=== PATIENT | female | born 1960 | race Two or more races ===

== ENCOUNTER 2017-12-12 14:44 | Emergency (ER) | payer BC, OTHER ==
[2017-12-12 15:08] VITALS: BP 139/87
[2017-12-12] MEDS ORDERED: ACETAMINOPHEN/CODEINE#3 (300/30mg) TAB PO ONE (15:45)
== END 2017-12-12 16:31 | disposition home or self-care (01) ==
LOC: ER 14:44
DX: S52.615A Nondisplaced fracture of left ulna styloid process, initial encounter for closed fracture (principal); S52.502A Unspecified fracture of the lower end of left radius, initial encounter for closed fracture; F17.210 Nicotine dependence, cigarettes, uncomplicated; W01.0XXA Fall on same level from slipping, tripping and stumbling without subsequent striking against object, initial encounter; Y93.89 Activity, other specified; Y92.89 Other specified places as the place of occurrence of the external cause; Y99.8 Other external cause status
CPT/HCPCS: 29125; 73110

== ENCOUNTER 2022-08-18 09:41 | Emergency (ER) | payer BC, OTHER ==
[~2022-08-18] VITALS: Ht 157.5 cm; Wt 58.4 kg
[2022-08-18 11:52] VITALS: BP 147/86
[2022-08-18] MEDS ORDERED: ACET1CAP14 PO (13:57)
== END 2022-08-18 14:05 | disposition home or self-care (01) ==
LOC: ER 09:41
DX: S93.602A Unspecified sprain of left foot, initial encounter (principal); F17.210 Nicotine dependence, cigarettes, uncomplicated; Z88.8 Allergy status to other drugs, medicaments and biological substances; X50.1XXA Overexertion from prolonged static or awkward postures, initial encounter; Y93.89 Activity, other specified; Y92.89 Other specified places as the place of occurrence of the external cause; Y99.8 Other external cause status
CPT/HCPCS: 73630

== ENCOUNTER 2023-01-09 09:18 | Inpatient (IN) | payer OTHER ==
[~2023-01-09] VITALS: Ht 157.5 cm; Wt 72.6 kg
[~2023-01-09 09:18] MED LIST: ACET1CAP14 PO
[2023-01-09 10:29] LABS: Basophils # (auto) 0.1 10 ^3/uL (0-0.2); Basophils % (auto) 0.9 % (0.0-2.0); Eosinophils # (auto) 0.2 10 ^3/uL (0-0.8); Eosinophils % (auto) 1.2 % (0.0-7.0); Hematocrit 46.8 % (36.0-46.0); Hemoglobin 15.9 g/dL (12.2-16.2); Lymphocytes # (auto) 1.6 10 ^3/uL (0.4-5.4); Lymphocytes % (auto) 11.7 % (10.0-50.0); Mean Corpuscular Hemoglobin 31.3 pg (28.0-32.0); Mean Corpuscular Volume 92.1 fL (80.0-100.0); Monocytes # (auto) 0.7 10 ^3/uL (0-1.3); Monocytes % (auto) 5.3 % (0.0-12.0); Neutrophils # (auto) 11.2 10 ^3/uL (1.6-8.6); Neutrophils % (auto) 80.9 % (37.0-80.0); Nucleated Red Blood Cells % 0.1 %; Red Blood Cells 5.08 10^6/uL (4.0-5.20); Red Cell Distribution Width 12.9 % (11.8-14.3); White Blood Cell 13.8 10^3/uL (4.4-10.8)
[2023-01-09 10:48] LABS: Albumin 4.1 g/dL (3.4-5.0); BUN/Creatinine Ratio 12.7 (10.0-20.0); Calcium 9.7 mg/dL (8.5-10.1); Potassium 3.2 mmol/L (3.5-5.1)
[2023-01-09 10:50] LABS: Bilirubin, Total 0.4 mg/dL (0.2-1.0); Total Protein 7.9 g/dL (6.4-8.2)
[2023-01-09] MEDS ORDERED: KETOROLAC TROMETH 30 MG/ML 1ML VIAL IV ONE (12:00)
[2023-01-09] MEDS ORDERED: cefTRIAXone 1GM/50ML D5W 50 ML IV ONE (12:00)
[2023-01-09] MEDS ORDERED: SODIUM CHLORIDE 0.9% 1,000 ML IV ONE (12:00)
[2023-01-09 12:04] LABS: Urine Bacteria NONE SEEN /hpf (None Seen); Urine Blood Negative /uL (Negative); Urine Specific Gravity 1.008 (1.001-1.035); Urine WBC <1 /hpf (0 - 5)
[2023-01-09] MEDS ORDERED: ONDANSETRON HCL 4 MG/2 ML VIAL IV PRN (14:45)
[2023-01-09] MEDS ORDERED: MORPHINE SULFATE INJ 2 MG/ml SYRG IV PRN (14:45)
[2023-01-09] MEDS ORDERED: POTASSIUM EFFERVESENT TAB 25 MEQ PO ONE (14:45)
[2023-01-09] MEDS ORDERED: DOCUSATE SOD 100 MG CAP PO PRN (14:45)
[2023-01-09] MEDS: metroNIDAZOLE 500MG/100ML 100 ML IV SCH ×2 (15:19→22:55)
[2023-01-09] MEDS: SODIUM CHLORIDE 0.9% 1,000 ML IV SCH ×2 (15:20→23:05)
[2023-01-09 18:02] LABS: INR 1.01 (0.9-1.15)
[2023-01-09 23:45] VITALS: BP 134/89
[2023-01-10] MEDS ORDERED: TOPI50TA53 PO (02:01)
[2023-01-10] MEDS ORDERED: HYDR25TA5 PO (02:01)
[2023-01-10] MEDS ORDERED: CHOL20009 PO (02:01)
[2023-01-10] MEDS ORDERED: ATOR40TA52 PO (02:01)
[2023-01-10] MEDS ORDERED: GABA-339 PO (02:01)
[2023-01-10] MEDS ORDERED: ASPI81CH59 PO (02:01)
[2023-01-10 05:00] VITALS: BP_SYST 114; BP_SYST 117; BP_DIAS 60; BP_DIAS 72
[2023-01-10] MEDS: SODIUM CHLORIDE 0.9% 1,000 ML IV SCH ×3 (05:50→18:05)
[2023-01-10] MEDS: metroNIDAZOLE 500MG/100ML 100 ML IV SCH ×3 (05:50→21:12)
[2023-01-10 06:15] LABS: Potassium 3.8 mmol/L (3.5-5.1)
[2023-01-10 06:23] LABS: Albumin 3.1 g/dL (3.4-5.0); BUN/Creatinine Ratio 14.3 (10.0-20.0); Bilirubin, Total 0.4 mg/dL (0.2-1.0); Calcium 8.3 mg/dL (8.5-10.1)
[2023-01-10 06:36] LABS: Basophils # (auto) 0.1 10 ^3/uL (0-0.2); Basophils % (auto) 1.2 % (0.0-2.0); Eosinophils # (auto) 0.3 10 ^3/uL (0-0.8); Eosinophils % (auto) 3.4 % (0.0-7.0); Hematocrit 38.2 % (36.0-46.0); Hemoglobin 13.6 g/dL (12.2-16.2); Lymphocytes # (auto) 2.2 10 ^3/uL (0.4-5.4); Mean Corpuscular Hemoglobin 32.4 pg (28.0-32.0); Mean Corpuscular Hgb Conc. 35.6 g/dL (32.0-36.0); Mean Corpuscular Volume 90.9 fL (80.0-100.0); Monocytes # (auto) 0.5 10 ^3/uL (0-1.3); Neutrophils # (auto) 5.6 10 ^3/uL (1.6-8.6); Neutrophils % (auto) 64.4 % (37.0-80.0); Nucleated Red Blood Cells % 0.1 %; Red Blood Cells 4.21 10^6/uL (4.0-5.20); Red Cell Distribution Width 12.9 % (11.8-14.3); White Blood Cell 8.7 10^3/uL (4.4-10.8)
[2023-01-10 08:20] VITALS: BP 114/77
[2023-01-10 09:00] VITALS: BP 114/77
[2023-01-10] MEDS: cefTRIAXone 1GM/50ML D5W 50 ML IV SCH (09:08)
[2023-01-10] MEDS: PANTOPRAZOLE 40 MG/10 ML VIAL INJ IV SCH (09:54)
[2023-01-10 13:00] VITALS: BP 126/82
[2023-01-10 17:00] VITALS: BP 125/86
[2023-01-10 22:00] VITALS: BP 127/87
[2023-01-11 05:00] VITALS: BP 129/77
[2023-01-11] MEDS: metroNIDAZOLE 500MG/100ML 100 ML IV SCH ×3 (05:49→21:53)
[2023-01-11] MEDS: SODIUM CHLORIDE 0.9% 1,000 ML IV SCH ×2 (05:50→16:45)
[2023-01-11 08:20] VITALS: BP 142/83
[2023-01-11] MEDS: cefTRIAXone 1GM/50ML D5W 50 ML IV SCH (08:31)
[2023-01-11 09:00] VITALS: BP 142/83
[2023-01-11] MEDS: PANTOPRAZOLE 40 MG/10 ML VIAL INJ IV SCH (10:10)
[2023-01-11 13:00] VITALS: BP 153/77
[2023-01-11 16:59] VITALS: BP_SYST 145; BP_SYST 149; BP_DIAS 93; BP_DIAS 94
[2023-01-11 22:00] VITALS: BP 154/88
[2023-01-12] MEDS: SODIUM CHLORIDE 0.9% 1,000 ML IV SCH ×2 (03:16→08:49)
[2023-01-12 05:00] VITALS: BP 147/87
[2023-01-12] MEDS: metroNIDAZOLE 500MG/100ML 100 ML IV SCH ×2 (05:12→13:14)
[2023-01-12 06:43] LABS: Albumin 3.4 g/dL (3.4-5.0); Calcium 8.4 mg/dL (8.5-10.1); Potassium 3.7 mmol/L (3.5-5.1)
[2023-01-12 06:48] LABS: BUN/Creatinine Ratio 7.5 (10.0-20.0); Bilirubin, Total 0.4 mg/dL (0.2-1.0); Total Protein 6.1 g/dL (6.4-8.2)
[2023-01-12] MEDS: cefTRIAXone 1GM/50ML D5W 50 ML IV SCH (08:50)
[2023-01-12] MEDS: PANTOPRAZOLE 40 MG/10 ML VIAL INJ IV SCH (08:50)
[2023-01-12 09:00] VITALS: BP 149/84
[2023-01-12 12:52] VITALS: BP 155/86
[2023-01-12] MEDS ORDERED: METR500T PO (13:54)
== END 2023-01-12 15:54 | disposition home or self-care (01) ==
LOC: ER 09:18 → OVERFLOW 14:52 → EAST 22:05
PROVIDERS: ADMIT Nurse Practitioner Family; ATTEND Internal Medicine
DX: K80.42 Calculus of bile duct with acute cholecystitis without obstruction (principal); E78.5 Hyperlipidemia, unspecified; E87.6 Hypokalemia; K83.8 Other specified diseases of biliary tract; F17.210 Nicotine dependence, cigarettes, uncomplicated; R74.01 Elevation of levels of liver transaminase levels; I10 Essential (primary) hypertension; Z88.8 Allergy status to other drugs, medicaments and biological substances; Z79.899 Other long term (current) drug therapy; K82.8 Other specified diseases of gallbladder
CPT/HCPCS: 36415; 71045; 74181; 76705; 80053; 81001; 83690; 85025; 85610; 86301; 86803; 86850; 86900; 86901; 87340; 96365; 96375; C9113; G0378; J0696; J1885; J3490

== ENCOUNTER 2024-10-23 15:50 | Emergency (ER) | payer OTHER ==
[~2024-10-23] VITALS: Ht 157.5 cm; Wt 53.1 kg
[~2024-10-23 15:50] MED LIST changes: +ASPI81CH59 PO; +ATOR40TA52 PO; +CHOL20009 PO; +GABA-339 PO; +HYDR25TA5 PO; +METR500T PO; +TOPI50TA53 PO
--- NOTE | 2024-10-23 17:11 | ED.PDOC ---
Musculoskeletal HPI Comments 63 y.o female presents to the ED for a chief complaint of left wrist pain radiating to her hand and digits x 4 days. Patient reports pain started After pushing up against a chair. Patient denies any definitive traumatic events. Patient reports she was placing her fitted sheets on her bed and the next day developed the pain. Patient denies any tingling or cramping sensation. Chief Complaint: Upper Extremity Time Seen by MD: 16:52 Primary Care Provider: BROOKE Serra Notes: Nurses Notes, Medications, Allergies Allergies: Uncoded Allergies: VITAMINS (Allergy, Unknown, 02/26/15) Home Meds Active Scripts Metronidazole (Flagyl) 500 Mg Tab, 500 MG PO TID, #21 TAB Prov:EILEEN FAIRBANKS MD 01/12/23 Acetaminophen (Tylenol) 325 Mg Cap, 325 MG PO Q4HPRN PRN, #30 CAP 0 Refills take 1-2 caps PO q4h PRN Prov:MONICA BETH MANAGER OF SELECTION AND ASSESSMENT 08/18/22 Reported Medications Hctz (Hydrochlorothiazide) 25 Mg Tab, 1 TAB PO DAILY 01/10/23 Gabapentin (Gabapentin) 600 Mg Tab, 1 TAB PO TID 01/10/23 Topiramate (Topiramate) 50 Mg Tab, 1 TAB PO DAILY 01/10/23 Aspirin (Aspirin Low Dose) 81 Mg Chw, 1 TAB PO DAILY 01/10/23 Atorvastatin Calcium (ATORVASTATIN CALCIUM) 40 Mg Tab, 1 TAB PO DAILY 01/10/23 Cholecalciferol (VITAMIN D) 2,000 Unit Tab, 1 TAB PO DAILY 01/10/23 Information Source: Patient Mode of Arrival: Ambulatory Location: Left Extremity Location: Hand, Wrist Timing: Days (4) Severity: Moderate Able to Move Extremity: Yes Bear Weight: Limited Pain: Moderate Mechanism: None Circumstances: Spontaneous Onset of Symptoms: Spontaneous Symptoms: Pain DVT Risk Factors: NONE Associated signs and symptoms: Hand pain Past Medical History PAST MEDICAL HISTORY: High Lipids, HTN Surgical History: BTL, Hernia Repair TEST SPECIALIST History: No Pertinent TEST SPECIALIST History Family History Family History: Reviewed,noncontributory to illness Social History Smoker: Cigarettes Alcohol: Denies ETOH Use Drugs: Denies Drug Use Lives In: Home Constitutional: denies: chills, diaphoresis, fatigue, fever, malaise, sweats, weakness, others EENTM: denies: blurred vision, double vision, ear bleeding, ear discharge, ear drainage, ear pain, ear ringing, eye pain, eye redness, hearing loss, mouth pain, mouth swelling, nasal discharge, nose bleeding, nose congestion, nose pain, photophobia, tearing, throat pain, throat swelling, voice changes, others Respiratory: denies: cough, hemoptysis, orthopnea, SOB at rest, shortness of breath, SOB with excertion, stridor, wheezing, others Cardiovascular: denies: chest pain, dizzy spells, diaphoresis, Dyspnea on exertion, edema, irregular heart beat, left arm pain, lightheadedness, palpitations, PND, syncope, others Gastrointestinal: denies: abdomen distended, abdominal pain, blood streaked bowels, constipated, diarrhea, dysphagia, difficulty swallowing, hematemesis, melena, nausea, poor appetite, poor fluid intake, rectal bleeding, rectal pain, vomiting, others Genitourinary: denies: abnormal vagina bleeding, burning, dyspareunia, dysuria, flank pain, frequency, hematuria, incontinence, pain, , vagina discharge, urgency, others Neurological: denies: dizziness, fainting, headache, left sided numbness, left sided weakness, numbness, paresthesia, pre-existing deficit, right sided numbness, right sided weakness, seizure, speech problems, tingling, tremors, weakness, others Musculoskeletal: reports: others (left wrist and hand pain ); denies: back pain, gout, joint pain, joint swelling, muscle pain, muscle stiffness, neck pain Integumetry: denies: bruises, change in color, change in hair/nails, dryness, laceration, lesions, lumps, rash, wounds, others Allergic/Immunocompromised: denies: Difficulty Healing, Frequent Infections, Hives, Itching, others Hematologic/Lymphatic: denies: anemia, blood clots, easy bleeding, easy bruising, swollen glands, others Endocrine: denies: excessive hunger, excessive sweating, excessive thirst, excessive urination, flushing, intolerance to cold, intolerance to heat, unexplained weight gain, unexplained weight loss, others Psychiatric: denies: anxiety, bipolar disorder, depression, hopeless, panic disorder, schizophrenia, sleepless, suicidal, others All Other Systems: Reviewed and Negative Physical Exam General Appearance: Moderate Distress ([id number] distress due to wrist and hand pain concerns.), Normal HEENT: Normal ENT Inspection, Pharynx Normal, TMs Normal Neck: Full Range of Motion, Non-Tender, Normal, Normal Inspection Respiratory: Chest Non-Tender, Lungs Clear, No Accessory Muscle Use, No Respiratory Distress, Normal Breath Sounds Cardiovascular: No Edema, No JVD, No Murmur, No Gallop, Normal Peripheral Pulses, Regular Rate/Rhythm Breast Exam: Deferred Gastrointestinal: No Organomegaly, Non Tender, No Pulsatile Mass, Normal Bowel Sounds, Soft Genitalia: Deferred Pelvic: Deferred Rectal: Deferred Extremities: Other ( Diffuse tenderness to palpation throughout the dorsal left wrists extending towards the thumb region and into the dorsal hand. No definitive edema or ecchymosis noted. Moderate reduced range of motion. Distal neurovascularly intact.) Neurologic: Alert, No Motor Deficits, Normal Affect, Normal Mood, No Sensory Deficits Cerebellar Function: Normal Reflexes: Normal Skin: Dry, Normal Color, Warm Lymphatic: No Adenopathy Was a procedure done? Was a procedure done?: No Differential Diagnosis EXT Differential Diagnosis: Fracture, Sprain, Dislocation, Strain, Arthritis X-Ray, Labs, Meds, VS Vital Signs Date Time Temp Pulse Resp B/P (MAP) Pulse Ox O2 Delivery O2 Flow Rate FiO2 10/23/24 18:03 Room Air* 0 21 10/23/24 18:03 73 16 117/62 (80) 96 10/23/24 16:14 98.7 74 15 106/73 (84) 99 Current Medications Medications (Trade) Dose Ordered Sig/Rock Route Start Time Stop Time Status Last Admin Ketorolac Tromethamine (Toradol Injection) 30 mg ONCE ONCE IM 10/23/24 17:15 10/23/24 17:16 DC 10/23/24 18:07 X-Ray, Labs, Meds, VS Comment All studies performed the ED were evaluated by me personally. There was a noted bony deformity of the distal radius with no definitive fracture. This may be from a prior injury. There does appear to be a chronic fracture deformity of the ulnar styloid. Patient will be placed in a thumb spica splint and has been advised to follow up with the primary care provider in approximately two weeks for re-evaluation. Pain medication as needed. Time of 1ST Reevaluation: 19:05 Reevaluation 1ST: Improved Consultation: PCP Patient Education/Counseling: Diagnosis, Treatment, Prognosis Family Education/Counseling: Diagnosis, Treatment, No Family Present Departure 1 Departure Time of Disposition: 19:06 Impression: Primary Impression: Fracture of ulnar styloid Disposition: HOME / SELF CARE / HOMELESS Condition: Stable Additional Instructions: Advise utilizing pain medication as needed for symptomatic relief in additionally, patient needs to follow up with her primary care provider in approximately one week for re-evaluation. e-Prescriptions Tramadol Hcl (Tramadol Hcl) 50 Mg Tab 50 MG PO Q8HP PRN, #20 TAB Prov: BEAR NIEVES PAC 10/23/24 Ibuprofen Micronized (Ibuprofen) 800 Mg Tab 800 MG PO Q8HP PRN, #20 TAB Prov: BEAR NIEVES PAC 10/23/24 Discharged With: Self, Friend Critical Care Note Critical Care Time?: No Stability Stability form required: No I personally scribed for BEAR NIEVES PAC ([email or web address]) on 10/23/24 at 17:11. Татьяна ctronically submitted by Noni Thompson ([email or web address]). BEAR NIEVES PAC Oct 23, 2024 17:11
--- NOTE | 2024-10-23 17:42 | DVH ---
CLINICAL INDICATION: Trauma TECHNIQUE: 3 radiographic views of the left wrist were obtained. Comparison: None FINDINGS/IMPRESSION: Bony deformity of the distal radius with no obvious fracture lines noted. Recommend correlation with point tenderness for nondisplaced fracture versus sequela of prior injury. There appears to be chronic fracture deformity of the ulnar styloid. Deformity of the triquetrum whic h appears chronic. Nonspecific soft tissue hyperdensity over the anterior wrist adjacent to the scaph oid and trapezium which may represent chondrocalcinosis/ crystal deposition.
--- NOTE | 2024-10-23 17:44 | DVH ---
CLINICAL INDICATION: Trauma TECHNIQUE: 3 radiographic views of the left hand were obtained. Comparison: None FINDINGS/IMPRESSION: Questionable slightly impacted transverse fracture through the distal radius. The visualized joint space is well maintained. The alignment is anatomical. There is no radiopaque foreign body.
[2024-10-23 18:03] VITALS: BP 117/62; PULSE 73; RESP 16; O2SAT 96
[2024-10-23] MEDS: KETOROLAC TROMETH 60MG/2ML VIAL IM ONE (18:07)
[2024-10-23] MEDS ORDERED: IBUP-1455 PO (19:07)
[2024-10-23] MEDS ORDERED: TRAM50TA2 PO (19:07)
== END 2024-10-23 21:04 | disposition home or self-care (01) ==
LOC: ER 15:50
DX: S52.615A Nondisplaced fracture of left ulna styloid process, initial encounter for closed fracture (principal); E78.5 Hyperlipidemia, unspecified; I10 Essential (primary) hypertension; F17.210 Nicotine dependence, cigarettes, uncomplicated; Z88.8 Allergy status to other drugs, medicaments and biological substances; Z79.899 Other long term (current) drug therapy; Z79.84 Long term (current) use of oral hypoglycemic drugs; Z98.890 Other specified postprocedural states; Z90.89 Acquired absence of other organs; X58.XXXA Exposure to other specified factors, initial encounter; Y93.89 Activity, other specified; Y92.89 Other specified places as the place of occurrence of the external cause; Y99.8 Other external cause status
CPT/HCPCS: 29130; 73110; 73130; 96372; 99284; J1885

== ENCOUNTER 2025-04-26 13:27 | Emergency (ER) | payer OTHER ==
[~2025-04-26] VITALS: Ht 157.5 cm; Wt 54.1 kg
[~2025-04-26 13:27] MED LIST changes: +IBUP-1455 PO; +TRAM50TA2 PO
--- NOTE | 2025-04-26 13:55 | ED.PDOC ---
Ben. trauma (HPI) HPI Comments A 64 YEAR OLD FEMALE PRESENTS TO THE ED WITH COMPLAINT OF HEAD INJURY. PATIENT WHO IS FRENCH-SPEAKING REPORTS THAT SHE WAS CLEANING UNDER A BAR TABLE AND HIT THE POSTERIOR PORTION OF HER HEAD, THE PATIENT IMMEDIATELY HAD A HEADACHE ALL HAPPENING 3 DAYS AGO. PATIENT STATES DIZZINESS AND NAUSEA SINCE THIS INJURY. 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 PATIENT DENIES FEVER, CHILLS, SHORTNESS OF BREATH, CHEST PAIN, ABDOMINAL PAIN, VOMITING, OR OTHER COMPLAINTS. NO OTHER SYMPTOMS OR MODIFYING FACTORS AT THIS TIME. PATIENT IS ALERT, ORIENTED X 4, AND HAS STEADY GAIT. Chief Complaint: Head Injury Time Seen by MD: 13:50 Primary Care Provider: BROOKE Reviewed notes: Nurses Notes, Medications, Allergies Allergies: Coded Allergies: No Known Drug Allergy (Verified Allergy, Unknown, 04/26/25) Uncoded Allergies: VITAMINS (Allergy, Unknown, 02/26/15) Home Meds Active Scripts Acetaminophen (Tylenol 8 Hour Arthritis) 650 Mg Tab, 650 MG PO TID, #30 TAB Prov:VIVIANA SHAW 04/26/25 Tramadol Hcl (Tramadol Hcl) 50 Mg Tab, 50 MG PO Q8HP PRN, #20 TAB Prov:BEAR NIEVES PAC 10/23/24 Ibuprofen Micronized (Ibuprofen) 800 Mg Tab, 800 MG PO Q8HP PRN, #20 TAB Prov:BEAR NIEVES PAC 10/23/24 Metronidazole (Flagyl) 500 Mg Tab, 500 MG PO TID, #21 TAB Prov:EILEEN FAIRBANKS MD 01/12/23 Acetaminophen (Tylenol) 325 Mg Cap, 325 MG PO Q4HPRN PRN, #30 CAP 0 Refills take 1-2 caps PO q4h PRN Prov:MONICA BETH SUPERINTENDENT TRACK 08/18/22 Reported Medications Hctz (Hydrochlorothiazide) 25 Mg Tab, 1 TAB PO DAILY 01/10/23 Gabapentin (Gabapentin) 600 Mg Tab, 1 TAB PO TID 01/10/23 Topiramate (Topiramate) 50 Mg Tab, 1 TAB PO DAILY 01/10/23 Aspirin (Aspirin Low Dose) 81 Mg Chw, 1 TAB PO DAILY 01/10/23 Atorvastatin Calcium (ATORVASTATIN CALCIUM) 40 Mg Tab, 1 TAB PO DAILY 01/10/23 Cholecalciferol (VITAMIN D) 2,000 Unit Tab, 1 TAB PO DAILY 01/10/23 Information Source: Patient Mode of Arrival: Ambulatory Severity: Mild, Moderate Timing: Days Duration: Since onset, Days Prehospital treatment: None Location: Head (POSTERIOR PORTION OF THE ED) Location of laceration: None Mechanism: Blunt trauma Associated signs and symtoms: Headache Past Medical History PAST MEDICAL HISTORY: CVA (FOR YEARS AGO WITH LEFT-SIDED WEAKNESS.), High Lipids, HTN Surgical History: BTL, Hernia Repair HUMAN RESOURCES PSYCHOLOGIST History: No Pertinent HUMAN RESOURCES PSYCHOLOGIST History Family History Family History: Reviewed,noncontributory to illness, Unknown Social History Smoker: Cigarettes Alcohol: Denies ETOH Use Drugs: Denies Drug Use Lives In: Home Constitutional: reports: weakness; denies: chills, diaphoresis, fatigue, fever, malaise, sweats, others EENTM: denies: blurred vision, double vision, ear bleeding, ear discharge, ear drainage, ear pain, ear ringing, eye pain, eye redness, hearing loss, mouth p ain, mouth swelling, nasal discharge, nose bleeding, nose congestion, nose pain, photophobia, tearing, throat pain, throat swelling, voice changes, others Respiratory: denies: cough, hemoptysis, orthopnea, SOB at rest, shortness of br eath, SOB with excertion, stridor, wheezing, others Cardiovascular: denies: chest pain, dizzy spells, diaphoresis, Dyspnea on exertion, edema, irregular heart beat, left arm pain, lightheadedness, palpitations, PND, syncope, others Gastrointestinal: reports: nausea; denies: abdomen distended, abdominal pain, blood streaked bowels, constipated, diarrhea, dysphagia, difficulty swallowing, hematemesis, melena, poor appetite, poor fluid intake, rectal bleeding, rectal pain, vomiting, others Genitourinary: denies: abnormal vagina bleeding, burning, dyspareunia, dysuria, flank pain, frequency, hematuria, incontinence, pain, , vagina discharge, urgency, others Neurological: reports: dizziness, headache; denies: fainting, left sided nu mbness, left sided weakness, numbness, paresthesia, pre-existing deficit, right sided numbness, right sided weakness, seizure, speech problems, tingling, tremors, weakness, others Musculoskeletal: denies: back pain, gout, joint pain, joint swelling, muscle pain, muscle stiffness, neck pain, others Integumetry: denies: bruises, change in color, change in hair/nails, dryness, laceration, lesions, lumps, rash, wounds, others Allergic/Immunocompromised: denies: Difficulty Healing, Frequent Infections, Hives, Itching, others Hematologic/Lymphatic: denies: anemia, blood clots, easy bleeding, easy bruising, swollen glands, others Endocrine: denies: excessive hunger, excessive sweating, excessive thirst, excessive urination, flushing, intolerance to cold, intolerance to heat, unexpla ined weight gain, unexplained weight loss, others Psychiatric: denies: anxiety, bipolar disorder, depression, hopeless, panic disorder, schizophrenia, sleepless, suicidal, others All Other Systems: Reviewed and Negative Physical Exam General Appearance: No Apparent Distress, Normal HEENT: Head (NO SCALP CONTUSIONS AND HEMATOMAS, NO SCALP DEFORMITY. ), Normal ENT Inspection, PERRL/EOMI, Pharynx Normal, TMs Normal Neck: Full Range of Motion, Non-Tender, Normal, Normal Inspection Respiratory: Chest Non-Tender, Lungs Clear, No Accessory Muscle Use, No Respiratory Distress, Normal Breath Sounds Cardiovascular: No Edema, No JVD, No Murmur, No Gallop, Normal Peripheral Pulses, Regular Rate/Rhythm Breast Exam: Deferred Gastrointestinal: No Organomegaly, Non Tender, No Pulsatile Mass, Normal Bowel Sounds, Soft Genitalia: Deferred Pelvic: Deferred Rectal: Deferred Extremities: No calf tenderness, Normal capillary refill, Normal inspection, Normal range of motion, Non-tender, No pedal edema Musculoskeletal : Apperance: Normal Neurologic: Alert, appeals rn II-XII nml as Tested, No Motor Deficits, Normal Affect, Normal Mood, No Sensory Deficits Cerebellar Function: Normal Reflexes: Normal Skin: Dry, Normal Color, Warm Peripheral Pulses: 2+ carotid (R), 2+ carotid (L) Lymphatic: No Adenopathy Was a procedure done? Was a procedure done?: No Differential Diagnosis Multiple Trauma: Closed Head Injury, Fractures, Abrasions, Contusion X-Ray, Labs, Meds, VS Vital Signs Date Time Temp Pulse Resp B/P (MAP) Pulse Ox O2 Delivery O2 Flow Rate FiO2 04/26/25 14:52 97.9 69 19 156/86 (109) 98 97.9 04/26/25 14:52 69 19 98 Room Air 04/26/25 13:29 98.1 80 16 147/93 98 98.1 PATIENT: DEDRICK WHIPPLECT: [id number]: [id number] : 1960 LOC: ER ROOM / BED: / AGE / SEX: 64 / F ADM STATUS: REG ER SERVICE 1341 ORDERING PHYSICIAN: VIVIANA SHAW PROCEDURE(s): HWOCT - HEAD WITHOUT CONTRAST REASON: HEADACHE POST HEAD INJURY, HX OF CVA ORDER NUMBER(s): [id number], ACCESSION NUMBER(s): [id number] EXAM: CT HEAD WITHOUT CONTRAST INDICATION: HEADACHE POST HEAD INJURY, HX OF CVA TECHNIQUE: CT images of the head were obtained without administration of IV contrast. CT scans at this facility use dose modulation, iterative reconstruction, and/or weight based dosing when appropriate to reduce radiation dose to as low as reasonably achievable. COMPARISON: None FINDINGS: PARENCHYMA: No acute hemorrhage. There is no mass effect, midline shift, or herniation. There is preservation of the juarez white differentiation. Mild scattered hypoattenuation along the periventricular, centrum semiovale, and deep white matter tracts, which are nonspecific however statistically most likely represent chronic microvascular ischemic change. benign calcification of the periphery of the right posterior sylvian fissure. VENTRICLES: No hydrocephalus. EXTRA-AXIAL SPACES: No extra-axial fluid collections. OTHER: The bony structures are intact. Visualized portions of the paranasal sinuses and mastoid air cells are clear. Degenerative change of bilateral temporomandibular joints. IMPRESSION: 1. No CT evidence of an acute intracranial abnormality. ATED BY: ELIDA CHRISTINE MD DICTATED DATE/TIME: 04/26/251455 SIGNED BY: ELIDA CHRISTINE MD SIGNED DATE/TIME: 04/26/251455 CC: X-Ray, Labs, Meds, VS Comment EXTERNAL MEDICAL RECORDS REVIEWED: [NONE] INDEPENDENT HISTORIANS: [NONE] SOCIAL DETERMINANTS OF HEALTH: [NONE] LABS ORDERED: NONE REVIEWED AND INTERPRETED RESULTS: NONE IMAGING ORDERED: CT OF THE HEAD TREATMENTS ORDERED: NONE PROCEDURES PERFORMED: NONE CRITICAL CARE TIME: NONE I HAVE DISCUSSED THE PATIENT WITH THE ATTENDING PHYSICIAN DR. MCGHEE AND HE AGREES WITH THE PATIENT'S PLAN OF CARE AND DISPOSITION. BASED ON HISTORY OF PRESENT ILLNESS, AND PHYSICAL EXAM, PATIENT WILL BE DISCHARGED HOME. DISCUSSED PLAN FOR DISCHARGE HOME WITH RX []. MEDICATION WARNINGS GIVEN. SHARED DECISION MAKING: DISCUSSED WITH PATIENT THAT THEIR WORKUP WAS NORMAL. PATIENT INSTRUCTED TO FOLLOW UP WITH PRIMARY CARE PROVIDER IN 1-2 DAYS FOR RE- EVALUATION OF SYMPTOMS. PATIENT VERBALIZES UNDERSTANDING TO RETURN TO ED FOR NEW OR WORSENING SYMPTOMS OR IF FOLLOW UP WITH PCP CANNOT BE OBTAINED. PATIENT FEELS COMFORTABLE GOING HOME AT THIS TIME. ALL QUESTIONS ADDRESSED AT TIME OF DISCHARGE. Time of 1ST Reevaluation: 15:30 Reevaluation 1ST: Improved Patient Education/Counseling: Diagnosis, Treatment, Need For Follow Up Family Education/Counseling: Diagnosis, Treatment, Need For Follow Up, No Family Present Medical Screening: No EMC Exist At This Time Departure 1 Departure Time of Disposition: 15:30 Impression: Primary Impression: Acute post-traumatic headache Qualified Codes: G44.319 - Acute post-traumatic headache, not intractable Disposition: 01 HOME / SELF CARE / HOMELESS Condition: Stable Additional Instructions: FOLLOW-UP WITH PCP IN 1 TO 2 DAYS. TAKE MEDICATIONS PRESCRIBED. RETURN TO ED FOR ANY NEW OR WORSENING SYMPTOMS. e-Prescriptions Acetaminophen (Tylenol 8 Hour Arthritis) 650 Mg Tab 650 MG PO TID, #30 TAB Prov: VIVIANA SHAW 04/26/25 Discharged With: Self, Relative Critical Care Note Critical Care Time?: No Stability Stability form required: No I personally scribed for VIVIANA SHAW ([email or web address]) on 04/26/25 at 13:55. Electronically submitted by Lul Swartz ([email or web address]). I personally scribed for VIVIANA SHAW ([email or web address]) on 04/26/25 at 15:05. Electronically submitted by Lul Swartz ([email or web address]). VIVIANA SHAW Apr 26, 2025 13:55
[2025-04-26 14:52] VITALS: BP 156/86; PULSE 69; RESP 19; TEMP 97.9; O2SAT 98
--- NOTE | 2025-04-26 14:58 | DVH ---
EXAM: CT HEAD WITHOUT CONTRAST INDICATION: HEADACHE POST HEAD INJURY, HX OF CVA TECHNIQUE: CT images of the head were obtained without administration of IV contrast. CT scans at [facility] facility use dose modulation, iterative reconstruction, and/or weight based dosing when appropriate to reduce radiation dose to as low as reasonably achievable. COMPARISON: None FINDINGS: PARENCHYMA: No acute hemorrhage. There is no mass effect, midline shift, or herniation. There is pres ervation of the juarez white differentiation. Mild scattered hypoattenuation along the periventricular, centrum semiovale, and deep white matter tracts, which are nonspecific however statistically most li marge represent chronic microvascular ischemic change. benign calcification of the periphery of the ri ght posterior sylvian fissure. VENTRICLES: No hydrocephalus. EXTRA-AXIAL SPACES: No extra-axial fluid collections. OTHER: The bony structures are intact. Visualized portions of the paranasal sinuses and mastoid air cells are clear. Degenerative change of bilateral temporomandibular joints. IMPRESSION: 1. No CT evidence of an acute intracranial abnormality.
[2025-04-26] MEDS ORDERED: ACET-1080 PO (15:29)
== END 2025-04-26 15:33 | disposition home or self-care (01) ==
LOC: ER 13:27
DX: G44.319 Acute post-traumatic headache, not intractable (principal); I10 Essential (primary) hypertension; F17.210 Nicotine dependence, cigarettes, uncomplicated; Z79.82 Long term (current) use of aspirin; Z79.899 Other long term (current) drug therapy; Z98.51 Tubal ligation status; Z98.890 Other specified postprocedural states; W22.03XA Walked into furniture, initial encounter; Y93.89 Activity, other specified; Y92.89 Other specified places as the place of occurrence of the external cause; Y99.8 Other external cause status
CPT/HCPCS: 70450